=== PATIENT | male | born 2000 | race Caucasian/White ===

== ENCOUNTER 2023-12-28 00:27 | Emergency (ER) | payer OTHER ==
[~2023-12-28] VITALS: Ht 180.3 cm; Wt 121.1 kg
[2023-12-28] MEDS ORDERED: SEPTDS PO (00:57)
== END 2023-12-28 01:03 | disposition home or self-care (01) ==
LOC: ED 00:27
DX: K61.1 Rectal abscess (principal)

== ENCOUNTER 2024-05-14 15:24 | Emergency (ER) | payer BC ==
[~2024-05-14] VITALS: Ht 180.3 cm; Wt 121.1 kg
[~2024-05-14 15:24] MED LIST: SEPTDS PO
[2024-05-14] MEDS ORDERED: Lidocaine Hydrochloride 15 ML UDC PO STA (15:39)
[2024-05-14] MEDS ORDERED: MG-AL HYDROXIDE/SIMETICONE 30 ML UDC PO STA (15:39)
[2024-05-14] MEDS ORDERED: Dicyclomine Hydrochloride 20 MG/10 ML OSYR PO STA (15:39)
[2024-05-14 16:00] LABS: BASO % 0.2 % (0.0-1.0); EOS % 0.2 % (1.0-4.0); HEMATOCRIT 46.7 % (42.0-52.0); MEAN CELL VOLUME 86.5 fl (80.0-94.0); MEAN CORPUSCULAR HGB 29.3 pg (27.0-31.0); MEAN CORPUSCULAR HGB CONC 33.8 g/dl (33.0-37.0); MEAN PLATELET VOLUME 10.4 fl (9.6-12.3); MONO # 0.8 10*3/uL (0.1-1.0); MONO % 4.9 % (3.0-9.0); NEUT # 13.9 10*3/uL (2.3-7.9); NEUT % 88.4 % (47.0-73.0); PLATELET COUNT AUTOMATED 295 10*3/uL (130-400); RED CELL DISTRI WIDTH 12.3 % (0-14.5); WHITE BLOOD COUNT 15.7 10*3/uL (4.8-10.8)
[2024-05-14 16:19] LABS: BUN 11 mg/dl (9-23); CHLORIDE 106 mmol/L (98-107); POTASSIUM 4.4 mmol/L (3.4-5.1)
[2024-05-14] MEDS ORDERED: PEPCID20 MG PO (18:14)
== END 2024-05-14 18:26 | disposition home or self-care (01) ==
LOC: ED 15:24
PROVIDERS: Physician Assistant Medical
DX: K21.9 Gastro-esophageal reflux disease without esophagitis (principal); I10 Essential (primary) hypertension; E66.9 Obesity, unspecified; F17.290 Nicotine dependence, other tobacco product, uncomplicated; Z68.30 Body mass index [BMI] 30.0-30.9, adult

== ENCOUNTER 2025-03-02 16:56 | Emergency (ER) | payer BC ==
[~2025-03-02] VITALS: Ht 180.3 cm; Wt 123.8 kg
[~2025-03-02 16:56] MED LIST changes: +PEPCID20 MG PO
[2025-03-02] MEDS ORDERED: SODIUM CHLORIDE 0.9% 1,000 ML IV ONE ×2 (17:35→19:02)
[2025-03-02] MEDS ORDERED: Ondansetron Hydrochloride 4 MG/2 ML VIAL IV ONE (17:35)
== END 2025-03-02 19:26 | disposition home or self-care (01) ==
LOC: ED 16:56
DX: J11.1 Influenza due to unidentified influenza virus with other respiratory manifestations (principal); R11.2 Nausea with vomiting, unspecified; R19.7 Diarrhea, unspecified; Z88.0 Allergy status to penicillin